=== PATIENT | male | born 1990 | race Two or more races ===

== ENCOUNTER 2024-03-30 18:04 | Emergency (ER) | payer MEDICAID, OTHER ==
[~2024-03-30] VITALS: Ht 167.6 cm; Wt 115.4 kg
[2024-03-30 18:39] VITALS: BP 139/89; PULSE 100; RESP 20; TEMP 98.4; O2SAT 97
--- NOTE | 2024-03-30 19:14 | ED.PDOC ---
Musculoskeletal HPI Comments C/O LEFT AXILLA PAIN X 2 WEEKS. STATES PAIN HAD WORSENED IN THE PAST 3 DAYS. DENIES INJURY. LIMITED ROM TO LEFT ARM Chief Complaint: Upper Extremity Time Seen by MD: 18:08 Reviewed Notes: Nurses Notes, Medications, Allergies Home Meds Active Scripts Ibuprofen (Ibuprofen) 800 Mg Tab, 1 TAB PO TID PRN for 6 Days, #18 TAB Prov:MANDY CHOI OFFAL BALER 03/30/24 Clindamycin Hcl (Clindamycin Hcl) 300 Mg Cap, 300 MG PO Q6HR for 7 Days, #28 CAP Prov:MANDY CHOI OFFAL BALER 03/30/24 Information Source: Patient Mode of Arrival: Ambulatory Past Medical History PAST MEDICAL HISTORY: Denies Surgical History: Denies all surgeries Family History Family History: Reviewed,noncontributory to illness Social History Smoker: Non-Smoker Alcohol: Denies ETOH Use Drugs: Denies Drug Use Constitutional: denies: chills, diaphoresis, fatigue, fever, malaise, sweats, weakness, others EENTM: denies: blurred vision, double vision, ear bleeding, ear discharge, ear drainage, ear pain, ear ringing, eye pain, eye redness, hearing loss, mouth pain, mouth swelling, nasal discharge, nose bleeding, nose congestion, nose pain, photophobia, tearing, throat pain, throat swelling, voice changes, others Respiratory: denies: cough, hemoptysis, orthopnea, SOB at rest, shortness of breath, SOB with excertion, stridor, wheezing, others Cardiovascular: denies: chest pain, dizzy spells, diaphoresis, Dyspnea on exertion, edema, irregular heart beat, left arm pain, lightheadedness, palpitations, PND, syncope, others Gastrointestinal: denies: abdomen distended, abdominal pain, blood streaked bowels, constipated, diarrhea, dysphagia, difficulty swallowing, hematemesis, melena, nausea, poor appetite, poor fluid intake, rectal bleeding, rectal pain, vomiting, others Genitourinary: denies: burning, dysuria, flank pain, frequency, hematuria, incontinence, penile discharge, penile sore, pain, testicle pain, testicle swelling, urgency, others Neurological: denies: dizziness, fainting, headache, left sided numbness, left sided weakness, numbness, paresthesia, pre-existing deficit, right sided numbness, right sided weakness, seizure, speech problems, tingling, tremors, weakness, others Musculoskeletal: reports: others (left underarm pain); denies: back pain, gout, joint pain, joint swelling, muscle pain, muscle stiffness, neck pain Integumetry: denies: bruises, change in color, change in hair/nails, dryness, laceration, lesions, lumps, rash, wounds, others Allergic/Immunocompromised: denies: Difficulty Healing, Frequent Infections, Hives, Itching, others Hematologic/Lymphatic: denies: anemia, blood clots, easy bleeding, easy bruising, swollen glands, others Endocrine: denies: excessive hunger, excessive sweating, excessive thirst, excessive urination, flushing, intolerance to cold, intolerance to heat, unexplained weight gain, unexplained weight loss, others Psychiatric: denies: anxiety, bipolar disorder, depression, hopeless, panic disorder, schizophrenia, sleepless, suicidal, others Physical Exam General Appearance: No Apparent Distress, Normal HEENT: Pharynx Normal Neck: Full Range of Motion, Non-Tender Respiratory: Lungs Clear, No Respiratory Distress, Normal Breath Sounds Cardiovascular: No Murmur, Normal Peripheral Pulses, Regular Rate/Rhythm Breast Exam: Deferred Gastrointestinal: No Organomegaly, Non Tender, No Pulsatile Mass, Normal Bowel Sounds, Soft Genitalia: Deferred Pelvic: Deferred Rectal: Deferred Extremities: Normal capillary refill, Normal inspection, Normal range of motion, Non-tender, No pedal edema Musculoskeletal : Apperance: Normal Neurologic: Alert, sap abap developer II-XII nml as Tested, No Motor Deficits, Normal Affect, Normal Mood, No Sensory Deficits Cerebellar Function: Normal Reflexes: Normal Skin: Dry, Normal Color, Warm, Other (GOLF BALL SIZE ABSCESS LEFT AXILLARY TENDERNESS PALPATION NOTED ERYTHEMA AND WHITE PURULENT DRAINAGE. FLUCTUANT TO TOUCH. NO NO DID STREAKING OR SURROUNDING AXILLARY LYMPH NODES PALPATED) Lymphatic: No Adenopathy Was a procedure done? Was a procedure done?: Yes Sedation Sedation?: No Informed consent obtained: Yes Incision and Drainage Incision and Drainage: Abscess Location LEFT AXILLARY Anesthetic: Lidocaine with Epi Preparation: Betadine Incision and Wound: Pus, Blood Informed consent obtained: Yes Risks/benefits/alt described: Yes Notes PATIENT TOLERATED WELL WITH MINIMAL BLOOD LOSS Differential Diagnosis EXT Differential Diagnosis: Fracture, Sprain, Neurovascular injury X-Ray, Labs, Meds, VS Vital Signs Date Time Temp Pulse Resp B/P (MAP) Pulse Ox O2 Delivery O2 Flow Rate FiO2 03/30/24 18:39 98.4 100 20 139/89 (106) 97 98.4 03/30/24 18:39 100 20 97 Room Air 03/30/24 18:28 98.4 10 20 139/84 (102) 97 Current Medications Medications (Trade) Dose Ordered Sig/Larisa Route Start Time Stop Time Status Last Admin Acetaminophen/ Hydrocodone Bitart ([place] 5/325MG Tab) 2 tab ONCE ONCE PO 03/30/24 19:30 03/30/24 19:31 DC 03/30/24 19:40 Ceftriaxone Sodium (Rocephin) 1,000 mg ONCE ONCE IM 03/30/24 20:30 03/30/24 20:31 DC 03/30/24 20:47 X-Ray, Labs, Meds, VS Comment SEE PROCEDURE NOTE. SCRIPT CLINDAMYCIN 4 TIMES DAILY X7 DAYS. IBUPROFEN 800 MG T.I.D. PAIN FOLLOW UP WITH YOUR PCP IN 1-2 DAYS. TAKE MEDICATIONS PRESCRIBED. RETURN TO ED FOR ANY NEW OR WORSENING SYMPTOMS. Time of 1ST Reevaluation: 20:23 Reevaluation 1ST: Improved Patient Education/Counseling: Diagnosis, Treatment, Prognosis, Need For Follow Up Family Education/Counseling: Diagnosis, Treatment, Prognosis, Need For Follow Up Departure 1 Departure Time of Disposition: 20:27 Impression: Primary Impression: Abscess of axilla, left Disposition: 01 HOME / SELF CARE / HOMELESS Condition: Stable e-Prescriptions Ibuprofen (Ibuprofen) 800 Mg Tab 1 TAB PO TID PRN for 6 Days, #18 TAB Prov: MANDY CHOI 03/30/24 Clindamycin Hcl (Clindamycin Hcl) 300 Mg Cap 300 MG PO Q6HR for 7 Days, #28 CAP Prov: MANDY CHOI 03/30/24 Discharged With: Self Critical Care Note Critical Care Time?: No Stability Stability form required: No MANDY CHOI Mar 30, 2024 19:14
[2024-03-30] MEDS: LIDOCAINE 1% HCL (LOCAL ANESTH.) INJ 20ML MDV ID ONE (19:40)
[2024-03-30] MEDS: HYDROcodone-ACET 5/325MG TAB PO ONE (19:40)
[2024-03-30] MEDS ORDERED: IBUP-1456 PO (20:33)
[2024-03-30] MEDS ORDERED: CLIN1CAP70 PO (20:33)
[2024-03-30] MEDS: cefTRIAXone SOD 1,000 MG VL IM ONE (20:47)
== END 2024-03-30 20:33 | disposition home or self-care (01) ==
LOC: ER 18:04
DX: L02.412 Cutaneous abscess of left axilla (principal)
CPT/HCPCS: 10060; 96372; 99283; J0696; J2003